=== PATIENT | female | born 1995 | race Caucasian/White ===

== ENCOUNTER → 2019-04-23 14:25 | Outpatient (CLI) | payer SELFPAY ==
[~2019-04-23 14:25] MED LIST: PRENAVITE1 TAB PO
[2019-04-23 15:12] LABS: BASOPHILS 0.3 % (0-2); EOSINOPHILS 3.1 % (0-7); HEMOGLOBIN 12.6 g/dL (12-16); IMMATURE GRANULOCYTES 0.6 % (0-5); LYMPHOCYTES 12.9 % (15-50); MCH 27.9 pg (26.0-34.0); MCHC 34.1 g/dL (31.0-37.0); MCV 81.9 fL (80.0-100.0); MEAN PLATELET VOLUME 10.5 fL (7.4-10.4); MONOCYTES 6.5 % (2-11); NEUTROPHILS 76.6 % (40-80); PLATELET COUNT 311 10x3/uL (130-400); RBC 4.52 10x6/uL (4.00-5.40); RDW 13.6 % (11.5-14.5); WBC 12.4 10x3/uL (4.8-10.8)
[2019-04-23 15:26] LABS: ALBUMIN 2.8 g/dL (3.4-5.0); ALKALINE PHOSPHATASE 93 U/L (46-116); ALT (SGPT) 40 U/L (10-68); BILIRUBIN - DIRECT 0.05 mg/dL (0.00-0.30); BILIRUBIN - INDIRECT 0.22 mg/dL (0.00-1.00); BILIRUBIN - TOTAL 0.27 mg/dL (0.2-1.3); CALC OSMOLALITY 266 mosm/kg (275-300); CALCIUM 9.3 mg/dL (8.5-10.1); CARBON DIOXIDE 23.3 mmol/L (21.0-32.0); CHLORIDE - SERUM 103 mmol/L (98-107); CREATININE - SERUM 0.7 mg/dL (0.6-1.3); GLUCOSE 76 mg/dL (74-106); POTASSIUM - SERUM 3.8 mmol/L (3.5-5.1); PROTEIN - SERUM 7.4 g/dL (6.4-8.2); SODIUM 135 mmol/L (136-145); UREA NITROGEN 6 mg/dL (7-18); URIC ACID 4.5 mg/dL (2.6-7.2); eGFR NON AFRICAN AMERICAN > 90 mL/min (90-120)
== END | disposition home or self-care (01) ==
LOC: D.LDO 14:25
PROVIDERS: ATTEND Obstetrics & Gynecology
DX: O16.9 Unspecified maternal hypertension, unspecified trimester (principal); Z3A.00 Weeks of gestation of pregnancy not specified

== ENCOUNTER → 2019-04-29 10:21 | Outpatient (CLI) | payer SELFPAY ==
[2019-04-29 10:47] LABS: BASOPHILS 0.4 % (0-2); HEMATOCRIT 33.8 % (36.0-48.0); HEMOGLOBIN 11.5 g/dL (12-16); IMMATURE GRANULOCYTES 0.5 % (0-5); LYMPHOCYTES 17.1 % (15-50); MCV 82.4 fL (80.0-100.0); MEAN PLATELET VOLUME 10.2 fL (7.4-10.4); MONOCYTES 6.3 % (2-11); NEUTROPHILS 71.7 % (40-80); PLATELET COUNT 281 10x3/uL (130-400); RDW 13.6 % (11.5-14.5); WBC 10.2 10x3/uL (4.8-10.8)
[2019-04-29 10:56] LABS: ALBUMIN 2.4 g/dL (3.4-5.0); ALKALINE PHOSPHATASE 82 U/L (46-116); ALT (SGPT) 25 U/L (10-68); BILIRUBIN - TOTAL 0.21 mg/dL (0.2-1.3); CALC OSMOLALITY 267 mosm/kg (275-300); CALCIUM 8.7 mg/dL (8.5-10.1); CARBON DIOXIDE 23.8 mmol/L (21.0-32.0); CHLORIDE - SERUM 104 mmol/L (98-107); CREATININE - SERUM 0.6 mg/dL (0.6-1.3); GLUCOSE 90 mg/dL (74-106); POTASSIUM - SERUM 3.5 mmol/L (3.5-5.1); PROTEIN - SERUM 6.8 g/dL (6.4-8.2); SODIUM 135 mmol/L (136-145); UREA NITROGEN 6 mg/dL (7-18); eGFR NON AFRICAN AMERICAN > 90 mL/min (90-120)
[2019-04-29 10:58] LABS: BILIRUBIN - DIRECT 0.03 mg/dL (0.00-0.30); BILIRUBIN - INDIRECT 0.18 mg/dL (0.00-1.00); URIC ACID 4.7 mg/dL (2.6-7.2)
== END | disposition home or self-care (01) ==
LOC: D.LDO 10:21
PROVIDERS: ATTEND Obstetrics & Gynecology
DX: O10.912 Unspecified pre-existing hypertension complicating pregnancy, second trimester (principal); Z3A.24 24 weeks gestation of pregnancy

== ENCOUNTER → 2019-05-16 15:23 | Outpatient (CLI) | payer MEDICAID ==
[2019-05-16 16:33] LABS: APPEARANCE CLEAR (CLEAR); BILIRUBIN NEGATIVE (NEGATIVE); COLOR YELLOW (YELLOW); GLUCOSE NEGATIVE (NEGATIVE); KETONE NEGATIVE (NEGATIVE); NITRITE NEGATIVE (NEGATIVE); PROTEIN NEGATIVE (NEGATIVE); SPECIFIC GRAVITY 1.015 (1.005-1.020); UROBILINOGEN NORMAL (NORMAL)
== END | disposition home or self-care (01) ==
LOC: D.LDO 15:23
PROVIDERS: ATTEND Obstetrics & Gynecology
DX: O36.8120 Decreased fetal movements, second trimester, not applicable or unspecified (principal); Z3A.27 27 weeks gestation of pregnancy; R51 Headache; M54.9 Dorsalgia, unspecified; O26.892 Other specified pregnancy related conditions, second trimester

== ENCOUNTER → 2019-05-18 09:59 | Outpatient (CLI) | payer MEDICAID ==
[2019-05-18 10:55] LABS: BASOPHILS 0.5 % (0-2); EOSINOPHILS 3.4 % (0-7); HEMATOCRIT 34.8 % (36.0-48.0); HEMOGLOBIN 11.6 g/dL (12-16); IMMATURE GRANULOCYTES 0.5 % (0-5); LYMPHOCYTES 16.2 % (15-50); MCH 27.4 pg (26.0-34.0); MCHC 33.3 g/dL (31.0-37.0); MCV 82.3 fL (80.0-100.0); MEAN PLATELET VOLUME 10.3 fL (7.4-10.4); NEUTROPHILS 73.4 % (40-80); PLATELET COUNT 299 10x3/uL (130-400); RBC 4.23 10x6/uL (4.00-5.40); RDW 13.7 % (11.5-14.5); WBC 10.9 10x3/uL (4.8-10.8)
[2019-05-18 11:09] LABS: ALBUMIN 2.5 g/dL (3.4-5.0); ALKALINE PHOSPHATASE 95 U/L (46-116); ALT (SGPT) 47 U/L (10-68); BILIRUBIN - DIRECT 0.06 mg/dL (0.00-0.30); BILIRUBIN - TOTAL 0.16 mg/dL (0.2-1.3); CALC OSMOLALITY 271 mosm/kg (275-300); CARBON DIOXIDE 23.8 mmol/L (21.0-32.0); CHLORIDE - SERUM 105 mmol/L (98-107); CREATININE - SERUM 0.6 mg/dL (0.6-1.3); GLUCOSE 92 mg/dL (74-106); POTASSIUM - SERUM 4.1 mmol/L (3.5-5.1); PROTEIN - SERUM 6.9 g/dL (6.4-8.2); SODIUM 137 mmol/L (136-145); UREA NITROGEN 6 mg/dL (7-18); URIC ACID 4.7 mg/dL (2.6-7.2); eGFR NON AFRICAN AMERICAN > 90 mL/min (90-120)
[2019-05-22 15:19] LABS: PROTEIN - URINE 14.9 mg/dL (0.0-11.9)
== END | disposition home or self-care (01) ==
LOC: D.LDO 09:59
PROVIDERS: ATTEND Obstetrics & Gynecology
DX: O16.9 Unspecified maternal hypertension, unspecified trimester (principal)

== ENCOUNTER → 2019-06-10 12:25 | Outpatient (CLI) | payer MEDICAID ==
[~2019-06-10 12:25] MED LIST changes: +NORMODYNE / TR200 MG PO; +TYLENOL W/CODEI1 TAB PO
[2019-06-10 12:54] LABS: BASOPHILS 0.3 % (0-2); EOSINOPHILS 4.7 % (0-7); IMMATURE GRANULOCYTES 0.5 % (0-5); LYMPHOCYTES 10.6 % (15-50); MCH 27.6 pg (26.0-34.0); MCHC 34.3 g/dL (31.0-37.0); MCV 80.6 fL (80.0-100.0); MEAN PLATELET VOLUME 10.4 fL (7.4-10.4); MONOCYTES 5.5 % (2-11); NEUTROPHILS 78.4 % (40-80); PLATELET COUNT 289 10x3/uL (130-400); RBC 4.34 10x6/uL (4.00-5.40); RDW 13.5 % (11.5-14.5); WBC 13.1 10x3/uL (4.8-10.8)
[2019-06-10 13:11] LABS: ALBUMIN 2.6 g/dL (3.4-5.0); ALKALINE PHOSPHATASE 110 U/L (46-116); ALT (SGPT) 32 U/L (10-68); BILIRUBIN - DIRECT 0.06 mg/dL (0.00-0.30); BILIRUBIN - INDIRECT 0.18 mg/dL (0.00-1.00); BILIRUBIN - TOTAL 0.24 mg/dL (0.2-1.3); CALC OSMOLALITY 271 mosm/kg (275-300); CALCIUM 8.8 mg/dL (8.5-10.1); CARBON DIOXIDE 20.2 mmol/L (21.0-32.0); CHLORIDE - SERUM 105 mmol/L (98-107); CREATININE - SERUM 0.6 mg/dL (0.6-1.3); GLUCOSE 97 mg/dL (74-106); POTASSIUM - SERUM 4.1 mmol/L (3.5-5.1); PROTEIN - SERUM 6.8 g/dL (6.4-8.2); SODIUM 137 mmol/L (136-145); UREA NITROGEN 6 mg/dL (7-18); URIC ACID 4.1 mg/dL (2.6-7.2); eGFR NON AFRICAN AMERICAN > 90 mL/min (90-120)
== END | disposition home or self-care (01) ==
LOC: D.LDO 12:25
PROVIDERS: ATTEND Obstetrics & Gynecology
DX: O26.893 Other specified pregnancy related conditions, third trimester (principal); Z3A.30 30 weeks gestation of pregnancy

== ENCOUNTER → 2019-06-12 10:17 | Outpatient (CLI) | payer MEDICAID | END | disposition home or self-care (01) | LOC: D.LABREF 10:17 → D.LDO 10:17 | PROVIDERS: ATTEND Obstetrics & Gynecology | DX: O36.8130 Decreased fetal movements, third trimester, not applicable or unspecified (principal); Z3A.31 31 weeks gestation of pregnancy ==

== ENCOUNTER → 2019-06-16 19:38 | Outpatient (CLI) | payer MEDICAID ==
[2019-06-16 20:31] LABS: BASOPHILS 0.3 % (0-2); HEMATOCRIT 34.1 % (36.0-48.0); HEMOGLOBIN 11.6 g/dL (12-16); IMMATURE GRANULOCYTES 0.8 % (0-5); LYMPHOCYTES 14.6 % (15-50); MCH 27.6 pg (26.0-34.0); MEAN PLATELET VOLUME 10.2 fL (7.4-10.4); MONOCYTES 5.1 % (2-11); NEUTROPHILS 76.2 % (40-80); PLATELET COUNT 301 10x3/uL (130-400); RBC 4.21 10x6/uL (4.00-5.40); RDW 13.6 % (11.5-14.5)
[2019-06-16 20:44] LABS: ALBUMIN 2.5 g/dL (3.4-5.0); ALKALINE PHOSPHATASE 104 U/L (46-116); ALT (SGPT) 32 U/L (10-68); BILIRUBIN - INDIRECT 0.17 mg/dL (0.00-1.00); BILIRUBIN - TOTAL 0.21 mg/dL (0.2-1.3); CALC OSMOLALITY 273 mosm/kg (275-300); CALCIUM 9.3 mg/dL (8.5-10.1); CARBON DIOXIDE 23.8 mmol/L (21.0-32.0); CHLORIDE - SERUM 104 mmol/L (98-107); CREATININE - SERUM 0.6 mg/dL (0.6-1.3); GLUCOSE 93 mg/dL (74-106); POTASSIUM - SERUM 3.6 mmol/L (3.5-5.1); PROTEIN - SERUM 6.5 g/dL (6.4-8.2); SODIUM 138 mmol/L (136-145); UREA NITROGEN 8 mg/dL (7-18); URIC ACID 5.2 mg/dL (2.6-7.2); eGFR NON AFRICAN AMERICAN > 90 mL/min (90-120)
[2019-06-16 20:45] LABS: BILIRUBIN - DIRECT 0.04 mg/dL (0.00-0.30)
== END | disposition home or self-care (01) ==
LOC: D.LDO 19:38
PROVIDERS: ATTEND Obstetrics & Gynecology
DX: O26.893 Other specified pregnancy related conditions, third trimester (principal); Z3A.31 31 weeks gestation of pregnancy

== ENCOUNTER → 2019-06-19 20:27 | Outpatient (CLI) | payer MEDICAID | END | disposition home or self-care (01) | LOC: D.LDO 20:27 | PROVIDERS: ATTEND Obstetrics & Gynecology | DX: O26.893 Other specified pregnancy related conditions, third trimester (principal); Z3A.32 32 weeks gestation of pregnancy ==

== ENCOUNTER 2019-06-23 09:56 | Outpatient (CLI) | payer MEDICAID | END 2019-06-23 10:05 | LOC: D.LDO 09:56 | PROVIDERS: ATTEND Obstetrics & Gynecology | DX: O10.913 Unspecified pre-existing hypertension complicating pregnancy, third trimester (principal); Z3A.32 32 weeks gestation of pregnancy ==

== ENCOUNTER → 2019-06-26 10:16 | Outpatient (CLI) | payer MEDICAID | END | disposition home or self-care (01) | LOC: D.LDO 10:16 | PROVIDERS: ATTEND Student in an Organized Health Care Education/Training Program | DX: O26.893 Other specified pregnancy related conditions, third trimester (principal); Z3A.33 33 weeks gestation of pregnancy; R03.0 Elevated blood-pressure reading, without diagnosis of hypertension ==

== ENCOUNTER → 2019-06-30 08:43 | Outpatient (CLI) | payer MEDICAID ==
[2019-06-30 09:27] LABS: BASOPHILS 0.3 % (0-2); EOSINOPHILS 3.9 % (0-7); HEMATOCRIT 34.9 % (36.0-48.0); HEMOGLOBIN 11.7 g/dL (12-16); IMMATURE GRANULOCYTES 0.4 % (0-5); LYMPHOCYTES 14.3 % (15-50); MCHC 33.5 g/dL (31.0-37.0); MCV 80.4 fL (80.0-100.0); MEAN PLATELET VOLUME 9.9 fL (7.4-10.4); MONOCYTES 6.7 % (2-11); NEUTROPHILS 74.4 % (40-80); PLATELET COUNT 294 10x3/uL (130-400); RBC 4.34 10x6/uL (4.00-5.40); RDW 13.6 % (11.5-14.5); WBC 10.8 10x3/uL (4.8-10.8)
[2019-06-30 09:50] LABS: ALBUMIN 2.3 g/dL (3.4-5.0); ALKALINE PHOSPHATASE 113 U/L (46-116); ALT (SGPT) 34 U/L (10-68); BILIRUBIN - DIRECT 0.07 mg/dL (0.00-0.30); BILIRUBIN - INDIRECT 0.07 mg/dL (0.00-1.00); BILIRUBIN - TOTAL 0.14 mg/dL (0.2-1.3); CALC OSMOLALITY 270 mosm/kg (275-300); CALCIUM 9.7 mg/dL (8.5-10.1); CARBON DIOXIDE 22.3 mmol/L (21.0-32.0); CHLORIDE - SERUM 103 mmol/L (98-107); CREATININE - SERUM 0.7 mg/dL (0.6-1.3); GLUCOSE 89 mg/dL (74-106); POTASSIUM - SERUM 3.9 mmol/L (3.5-5.1); PROTEIN - SERUM 6.2 g/dL (6.4-8.2); SODIUM 137 mmol/L (136-145); UREA NITROGEN 6 mg/dL (7-18); URIC ACID 4.9 mg/dL (2.6-7.2); eGFR NON AFRICAN AMERICAN > 90 mL/min (90-120)
== END | disposition home or self-care (01) ==
LOC: D.LDO 08:43
PROVIDERS: ATTEND Obstetrics & Gynecology
DX: O26.899 Other specified pregnancy related conditions, unspecified trimester (principal); Z3A.33 33 weeks gestation of pregnancy

== ENCOUNTER → 2019-07-03 18:19 | Outpatient (CLI) | payer MEDICAID | END | disposition home or self-care (01) | LOC: D.LDO 18:19 | PROVIDERS: ATTEND Obstetrics & Gynecology | DX: O16.9 Unspecified maternal hypertension, unspecified trimester (principal) ==

== ENCOUNTER 2019-07-07 14:13 | Outpatient (CLI) | payer MEDICAID ==
[2019-07-07 15:05] LABS: BASOPHILS 0.2 % (0-2); EOSINOPHILS 2.6 % (0-7); HEMATOCRIT 32.7 % (36.0-48.0); IMMATURE GRANULOCYTES 0.5 % (0-5); LYMPHOCYTES 15.9 % (15-50); MCH 26.8 pg (26.0-34.0); MCHC 33.6 g/dL (31.0-37.0); MCV 79.8 fL (80.0-100.0); MEAN PLATELET VOLUME 10.2 fL (7.4-10.4); MONOCYTES 7.1 % (2-11); NEUTROPHILS 73.7 % (40-80); PLATELET COUNT 294 10x3/uL (130-400); RDW 13.7 % (11.5-14.5); WBC 9.6 10x3/uL (4.8-10.8)
[2019-07-07 15:17] LABS: ALBUMIN 2.3 g/dL (3.4-5.0); ALKALINE PHOSPHATASE 111 U/L (46-116); ALT (SGPT) 94 U/L (10-68); BILIRUBIN - DIRECT 0.07 mg/dL (0.00-0.30); BILIRUBIN - INDIRECT 0.13 mg/dL (0.00-1.00); CALC OSMOLALITY 274 mosm/kg (275-300); CALCIUM 8.7 mg/dL (8.5-10.1); CARBON DIOXIDE 24.9 mmol/L (21.0-32.0); CHLORIDE - SERUM 104 mmol/L (98-107); CREATININE - SERUM 0.6 mg/dL (0.6-1.3); GLUCOSE 119 mg/dL (74-106); POTASSIUM - SERUM 3.6 mmol/L (3.5-5.1); PROTEIN - SERUM 6.7 g/dL (6.4-8.2); SODIUM 138 mmol/L (136-145); UREA NITROGEN 7 mg/dL (7-18); URIC ACID 5.8 mg/dL (2.6-7.2); eGFR NON AFRICAN AMERICAN > 90 mL/min (90-120)
[2019-07-07 19:46] LABS: BASOPHILS 0.3 % (0-2); EOSINOPHILS 3.3 % (0-7); HEMATOCRIT 34.4 % (36.0-48.0); HEMOGLOBIN 11.6 g/dL (12-16); IMMATURE GRANULOCYTES 0.6 % (0-5); LYMPHOCYTES 18.2 % (15-50); MCH 27.1 pg (26.0-34.0); MCHC 33.7 g/dL (31.0-37.0); MCV 80.4 fL (80.0-100.0); MEAN PLATELET VOLUME 10.2 fL (7.4-10.4); MONOCYTES 9.2 % (2-11); NEUTROPHILS 68.4 % (40-80); PLATELET COUNT 291 10x3/uL (130-400); RBC 4.28 10x6/uL (4.00-5.40); RDW 13.7 % (11.5-14.5); WBC 9.9 10x3/uL (4.8-10.8)
[2019-07-07 20:08] LABS: CALC OSMOLALITY 280 mosm/kg (275-300); CALCIUM 8.4 mg/dL (8.5-10.1); CARBON DIOXIDE 22.9 mmol/L (21.0-32.0); CHLORIDE - SERUM 107 mmol/L (98-107); CREATININE - SERUM 0.6 mg/dL (0.6-1.3); GLUCOSE 127 mg/dL (74-106); POTASSIUM - SERUM 3.6 mmol/L (3.5-5.1); SODIUM 141 mmol/L (136-145); UREA NITROGEN 6 mg/dL (7-18); URIC ACID 5.3 mg/dL (2.6-7.2); eGFR NON AFRICAN AMERICAN > 90 mL/min (90-120)
[2019-07-07 21:28] LABS: ALBUMIN 2.4 g/dL (3.4-5.0); BILIRUBIN - DIRECT 0.07 mg/dL (0.00-0.30); BILIRUBIN - INDIRECT 0.06 mg/dL (0.00-1.00); BILIRUBIN - TOTAL 0.13 mg/dL (0.2-1.3); PROTEIN - SERUM 6.5 g/dL (6.4-8.2)
[2019-07-08 02:28] VITALS: BP 98/45
[2019-07-08 04:42] VITALS: BP 92/42
[2019-07-08 07:06] LABS: MCH 26.9 pg (26.0-34.0); MCHC 33.3 g/dL (31.0-37.0); MCV 80.7 fL (80.0-100.0); MEAN PLATELET VOLUME 10.5 fL (7.4-10.4); RBC 4.09 10x6/uL (4.00-5.40); WBC 9.7 10x3/uL (4.8-10.8)
[2019-07-08 07:43] LABS: ALBUMIN 2.1 g/dL (3.4-5.0); ALKALINE PHOSPHATASE 112 U/L (46-116); ALT (SGPT) 86 U/L (10-68); BILIRUBIN - DIRECT 0.02 mg/dL (0.00-0.30); BILIRUBIN - INDIRECT 0.18 mg/dL (0.00-1.00); CALC OSMOLALITY 277 mosm/kg (275-300); CALCIUM 8.2 mg/dL (8.5-10.1); CARBON DIOXIDE 22.5 mmol/L (21.0-32.0); CHLORIDE - SERUM 108 mmol/L (98-107); CREATININE - SERUM 0.6 mg/dL (0.6-1.3); GLUCOSE 94 mg/dL (74-106); PROTEIN - SERUM 6.4 g/dL (6.4-8.2); SODIUM 140 mmol/L (136-145); UREA NITROGEN 9 mg/dL (7-18); eGFR NON AFRICAN AMERICAN > 90 mL/min (90-120)
== END 2019-07-08 08:30 | disposition home or self-care (01) ==
LOC: D.LDO 14:13 → D.LD 22:10 → D.LDO 07-08 08:30
PROVIDERS: ATTEND Obstetrics & Gynecology
DX: O26.899 Other specified pregnancy related conditions, unspecified trimester (principal); Z3A.00 Weeks of gestation of pregnancy not specified

== ENCOUNTER → 2019-07-10 17:05 | Outpatient (CLI) | payer MEDICAID ==
[2019-07-10 17:31] LABS: BASOPHILS 0.2 % (0-2); EOSINOPHILS 2.5 % (0-7); HEMATOCRIT 34.1 % (36.0-48.0); HEMOGLOBIN 11.2 g/dL (12-16); IMMATURE GRANULOCYTES 0.4 % (0-5); LYMPHOCYTES 16.4 % (15-50); MCH 27.2 pg (26.0-34.0); MCHC 32.8 g/dL (31.0-37.0); MCV 82.8 fL (80.0-100.0); MONOCYTES 6.9 % (2-11); NEUTROPHILS 73.6 % (40-80); PLATELET COUNT 310 10x3/uL (130-400); RBC 4.12 10x6/uL (4.00-5.40); RDW 13.7 % (11.5-14.5); WBC 11.4 10x3/uL (4.8-10.8)
[2019-07-10 17:46] LABS: ALBUMIN 2.4 g/dL (3.4-5.0); ALKALINE PHOSPHATASE 121 U/L (46-116); ALT (SGPT) 79 U/L (10-68); BILIRUBIN - DIRECT 0.07 mg/dL (0.00-0.30); BILIRUBIN - INDIRECT 0.13 mg/dL (0.00-1.00); CALC OSMOLALITY 279 mosm/kg (275-300); CALCIUM 8.4 mg/dL (8.5-10.1); CARBON DIOXIDE 24.7 mmol/L (21.0-32.0); CHLORIDE - SERUM 107 mmol/L (98-107); CREATININE - SERUM 0.6 mg/dL (0.6-1.3); GLUCOSE 116 mg/dL (74-106); POTASSIUM - SERUM 3.6 mmol/L (3.5-5.1); PROTEIN - SERUM 6.4 g/dL (6.4-8.2); SODIUM 141 mmol/L (136-145); UREA NITROGEN 6 mg/dL (7-18); URIC ACID 4.6 mg/dL (2.6-7.2); eGFR NON AFRICAN AMERICAN > 90 mL/min (90-120)
== END | disposition home or self-care (01) ==
LOC: D.LDO 17:05
PROVIDERS: ATTEND Obstetrics & Gynecology
DX: O13.3 Gestational [pregnancy-induced] hypertension without significant proteinuria, third trimester (principal); Z3A.35 35 weeks gestation of pregnancy

== ENCOUNTER 2019-07-14 20:01 | Outpatient (CLI) | payer MEDICAID ==
[2019-07-14 21:31] LABS: APPEARANCE CLEAR (CLEAR); BILIRUBIN NEGATIVE (NEGATIVE); COLOR YELLOW (YELLOW); GLUCOSE NEGATIVE (NEGATIVE); KETONE NEGATIVE (NEGATIVE); NITRITE NEGATIVE (NEGATIVE); PROTEIN NEGATIVE (NEGATIVE); UROBILINOGEN NORMAL (NORMAL)
[2019-07-14 21:35] LABS: BASOPHILS 0.2 % (0-2); HEMATOCRIT 35.9 % (36.0-48.0); HEMOGLOBIN 11.8 g/dL (12-16); IMMATURE GRANULOCYTES 0.5 % (0-5); LYMPHOCYTES 14.6 % (15-50); MCHC 32.9 g/dL (31.0-37.0); MCV 82.2 fL (80.0-100.0); MEAN PLATELET VOLUME 10.5 fL (7.4-10.4); MONOCYTES 6.9 % (2-11); NEUTROPHILS 75.8 % (40-80); PLATELET COUNT 338 10x3/uL (130-400); RBC 4.37 10x6/uL (4.00-5.40); RDW 13.7 % (11.5-14.5); WBC 12.8 10x3/uL (4.8-10.8)
[2019-07-14 21:45] LABS: ALBUMIN 2.4 g/dL (3.4-5.0); ALKALINE PHOSPHATASE 125 U/L (46-116); ALT (SGPT) 89 U/L (10-68); BILIRUBIN - DIRECT 0.07 mg/dL (0.00-0.30); BILIRUBIN - TOTAL 0.27 mg/dL (0.2-1.3); CALC OSMOLALITY 271 mosm/kg (275-300); CALCIUM 8.7 mg/dL (8.5-10.1); CARBON DIOXIDE 24.5 mmol/L (21.0-32.0); CHLORIDE - SERUM 104 mmol/L (98-107); CREATININE - SERUM 0.8 mg/dL (0.6-1.3); GLUCOSE 95 mg/dL (74-106); POTASSIUM - SERUM 3.4 mmol/L (3.5-5.1); PROTEIN - SERUM 7.1 g/dL (6.4-8.2); SODIUM 137 mmol/L (136-145); UREA NITROGEN 8 mg/dL (7-18); URIC ACID 4.6 mg/dL (2.6-7.2); eGFR NON AFRICAN AMERICAN > 90 mL/min (90-120)
[2019-07-24 05:54] VITALS: BMI 51.4
== END 2019-07-14 22:18 ==
LOC: D.LDO 20:01
PROVIDERS: Student in an Organized Health Care Education/Training Program; ATTEND Obstetrics & Gynecology
DX: O13.3 Gestational [pregnancy-induced] hypertension without significant proteinuria, third trimester (principal); Z3A.35 35 weeks gestation of pregnancy

== ENCOUNTER → 2019-07-17 13:27 | Outpatient (CLI) | payer MEDICAID ==
[~2019-07-17 13:27] MED LIST changes: +CELEXA20 MG PO; +HYDROCODON-ACE1 EAC7 PO; +IBUPROFEN800 MG PO
[2019-07-24 05:54] VITALS: BMI 51.4
== END | disposition home or self-care (01) ==
LOC: D.LDO 13:27
PROVIDERS: ATTEND Obstetrics & Gynecology
DX: O26.90 Pregnancy related conditions, unspecified, unspecified trimester (principal)

== ENCOUNTER → 2019-07-21 16:40 | Outpatient (CLI) | payer MEDICAID ==
[2019-07-21 17:22] LABS: BASOPHILS 0.2 % (0-2); EOSINOPHILS 2.4 % (0-7); HEMATOCRIT 36.3 % (36.0-48.0); IMMATURE GRANULOCYTES 0.5 % (0-5); LYMPHOCYTES 14.2 % (15-50); MCH 27.3 pg (26.0-34.0); MCHC 33.1 g/dL (31.0-37.0); MCV 82.5 fL (80.0-100.0); MEAN PLATELET VOLUME 10.8 fL (7.4-10.4); MONOCYTES 7.1 % (2-11); NEUTROPHILS 75.6 % (40-80); PLATELET COUNT 320 10x3/uL (130-400); RDW 13.8 % (11.5-14.5); WBC 13.2 10x3/uL (4.8-10.8)
[2019-07-21 17:39] LABS: ALBUMIN 2.5 g/dL (3.4-5.0); ALKALINE PHOSPHATASE 137 U/L (46-116); ALT (SGPT) 65 U/L (10-68); BILIRUBIN - INDIRECT 0.06 mg/dL (0.00-1.00); BILIRUBIN - TOTAL 0.16 mg/dL (0.2-1.3); CALC OSMOLALITY 275 mosm/kg (275-300); CALCIUM 8.7 mg/dL (8.5-10.1); CARBON DIOXIDE 21.3 mmol/L (21.0-32.0); CHLORIDE - SERUM 106 mmol/L (98-107); CREATININE - SERUM 0.6 mg/dL (0.6-1.3); GLUCOSE 82 mg/dL (74-106); PROTEIN - SERUM 6.8 g/dL (6.4-8.2); SODIUM 140 mmol/L (136-145); UREA NITROGEN 7 mg/dL (7-18); URIC ACID 4.6 mg/dL (2.6-7.2); eGFR NON AFRICAN AMERICAN > 90 mL/min (90-120)
[2019-07-24 05:54] VITALS: BMI 51.4
== END | disposition home or self-care (01) ==
LOC: D.LDO 16:40 → D.LABREF 16:40
PROVIDERS: ATTEND Obstetrics & Gynecology
DX: O13.3 Gestational [pregnancy-induced] hypertension without significant proteinuria, third trimester (principal); Z3A.36 36 weeks gestation of pregnancy

== ENCOUNTER 2019-07-24 05:36 | Inpatient (IN) | payer MEDICAID ==
[~2019-07-24] VITALS: Ht 167.6 cm; Wt 144.5 kg
[2019-07-24] VITALS (14 sets, daily range): BP systolic 100–131; BP diastolic 53–80; Ht 167.6 cm; Wt 144.5 kg
[~2019-07-24 05:36] MED LIST changes: -CELEXA20 MG PO; -HYDROCODON-ACE1 EAC7 PO; -IBUPROFEN800 MG PO
[2019-07-24 07:05] LABS: APPEARANCE CLEAR (CLEAR); COLOR YELLOW (YELLOW); NITRITE NEGATIVE (NEGATIVE)
[2019-07-24 07:06] LABS: BILIRUBIN NEGATIVE (NEGATIVE); GLUCOSE NEGATIVE (NEGATIVE); KETONE NEGATIVE (NEGATIVE); PROTEIN NEGATIVE (NEGATIVE); UROBILINOGEN NORMAL (NORMAL)
[2019-07-24 07:07] LABS: HEMATOCRIT 37.7 % (36.0-48.0); HEMOGLOBIN 12.3 g/dL (12-16); MCH 26.8 pg (26.0-34.0); MCHC 32.6 g/dL (31.0-37.0); MCV 82.1 fL (80.0-100.0); MEAN PLATELET VOLUME 10.3 fL (7.4-10.4); RBC 4.59 10x6/uL (4.00-5.40); RDW 14.1 % (11.5-14.5); WBC 10.8 10x3/uL (4.8-10.8)
--- NOTE | 2019-07-24 09:55 | NUR ---
DERMATONES BILATERAL T10 LEVEL. ICE PACK PLACED, PERIPAD IN PLACE. RECIEVED PATIENT AWAKE AND ALERT.
--- NOTE | 2019-07-24 09:56 | NUR ---
PATIENT ABLE TO WIGGLE BILATERAL TOES. DERMATONES T12
--- NOTE | 2019-07-24 10:32 | NUR ---
PT RCVD FROM [facility], RN IN RECOVERY, VIA BED TO ROOM 1227. PT AAOx3, RATING PAIN APPROX 3/10 AT INCISION. RIGHT WRIST PIV INFUSING PITOCIN ORDERED. WHITE OCCLUSIVE DRESSING OVER LOW TRANSVERSE ABD INCISION IS C/D/I. FF, ML, U/1. SMALL TO MOD AMOUNT RUBRA LOCHIA NOTED TO PERIPAD, NO CLOTS EXPELLED WITH MASSAGE. PERIPAD CHANGED. VITALE CATH DRAINING CLEAR YELLOW URINE TO BEDSIDE DRAINAGE, TUBING NOTED TO BE SECURED VIA STAT LOCK TO PT'S INNER RIGHT THIGH. PT C/O CRAMPING FOLLOWING FUNDAL MASSAGE, RATES CRAMPING PAIN 7/10, REQUESTING PAIN MED. WILL ADMIN ORDERED. SRUx2, CL IN REACH. SIG OTHER AT BEDSIDE. NURSERY RN TO ROOM AT THIS TIME WITH TO BREASTFEED.
--- NOTE | 2019-07-24 10:36 | NUR ---
FUNUS MIDLINE, 1 FINGERBREATH BELOW UMBILICUS, FIRM AND HARD. PERIPAD WITH DARK RED DRAINIAGE MINIMAL CLOTS. PERIPAD REPLACED.
--- NOTE | 2019-07-24 10:52 | NUR ---
PT ADMIN TORADOL ORDERED PRN FOR PAIN. PT INFANT AT THIS TIME. WILL OBTAIN WOODWINDS TEACHER PUMP AND SET UP ORDERED. SIG OTHER AT BEDSIDE. SRUx2, CL IN REACH.
--- NOTE | 2019-07-24 11:03 | NUR ---
VULCANIZER OPERATOR SET UP ORDERED, SEE EMAR FOR DOC. PT RATING PAIN APPROX 6/10 AT THIS TIME DUE TO CRAMPING WITH . PT ADMIN 0.4MG BOLUS DOSE DILAUDID PER VULCANIZER OPERATOR PUMP ORDERED PRN. PT INSTRUCTED ON VULCANIZER OPERATOR USE, UNDERSTANDING VERBALIZED. FF, ML, U/1. MODERATE RUBRA LOCHIA NOTED TO PERIPAD, PAD CHANGED. SCD'S CONNECTED TO PUMP AND TURNED ON TO LE BILAT. PT INSTRUCTED ON SCD PURPOSE, UNDERSTANDING VERBALIZED. 200ML CLEAR YELLOW URINE EMPTIED FROM UROMETER. PT DENIES FURTHER NEEDS AT THIS TIME. SIG OTHER AT BEDSIDE. SRUx2, CL IN REACH.
--- NOTE | 2019-07-24 11:30 | NUR ---
THIS RN TO ROOM FOR PT CHECK. FF, ML, U/1. SMALL RUBRA LOCHIA NOTED TO PERIPAD. PT REQUESTS TO MOVE UP IN BED, DOES SO PER SELF. PT ABLE TO LIFT BUTTOCKS OFF BED, BED PADS CHANGED. PT PROVIDED WITH ICE WATER AND INSTRUCTED TO SIP SLOWLY AND REPORT ANY NAUSEA, EMESIS BAG GIVEN. SURGICAL SUPPORT PILLOW PROVIDED FOR ABD. PT DENIES FURTHER NEEDS AT THIS TIME, SMILING AND VISITING WITH FAMILY MEMBERS. SRUx2, CL IN REACH.
--- NOTE | 2019-07-24 12:30 | NUR ---
THIS RN TO ROOM FOR PT CHECK. PT SITTING UP IN BED, VISITING WITH FAMILY. PT RATES PAIN APPROX 3/10, DENIES NEEDS. SRUx2, CL IN REACH. WILL CONT TO MONITOR.
--- NOTE | 2019-07-24 13:30 | NUR ---
THIS RN TO ROOM FOR PT CHECK. 205ML CLEAR YELLOW URINE EMPTIED FROM UROMETER. FF, ML, U/1. SMALL RUBRA LOCHIA NOTED TO PERIPAD, PAD CHANGED. PT DENIES NEEDS. SRUx2, CL IN REACH.
--- NOTE | 2019-07-24 14:30 | NUR ---
THIS RN TO ROOM FOR PT CHECK. PT SITTING UP IN BED VISITING WITH FAMILY. PT TEACHING REINFORCED ON USE OF INCENTIVE SPIROMETER, PT STATES SHE HAS NOT USED IT YET. PT ENCOURAGED, DOES DEEP BREATHING x3 WITH GREAT EFFORT, GOOD COUGH. SMALL TO MOD RUBRA LOCHIA NOTED TO PERIPAD, PAD CHANGED. 60ML CLEAR YELLOW URINE EMPTIED FROM UROMETER. PT REPORTS GOOD PAIN CONTROL WITH CHANNEL DEVELOPMENT MANAGER USE. PT PROVIDED WITH APPLE JUICE PER REQUEST, DENIES FURTHER NEEDS. SRUx2, CL IN REACH. WILL CONT TO MONITOR.
[2019-07-24 14:34] LABS: BASOPHILS 0.2 % (0-2); EOSINOPHILS 0.8 % (0-7); HEMATOCRIT 32.6 % (36.0-48.0); HEMOGLOBIN 10.7 g/dL (12-16); IMMATURE GRANULOCYTES 0.4 % (0-5); MCH 26.8 pg (26.0-34.0); MCHC 32.8 g/dL (31.0-37.0); MCV 81.7 fL (80.0-100.0); MEAN PLATELET VOLUME 10.4 fL (7.4-10.4); MONOCYTES 6.6 % (2-11); PLATELET COUNT 285 10x3/uL (130-400); RBC 3.99 10x6/uL (4.00-5.40)
[2019-07-24 14:35] LABS: WBC 17.8 10x3/uL (4.8-10.8)
--- NOTE | 2019-07-24 17:30 | NUR ---
100ML CLEAR YELLOW URINE EMPTIED FROM UROMETER. PT C/O CRUZ, WILL ADMIN TORADOL ORDERED. PT TO BE TRANSFERRED VIA BED TO ROOM 1273.
--- NOTE | 2019-07-24 17:40 | NUR ---
PT TRANSFERRED TO ROOM 1273 FOR STAY. FF, ML, U/1. LARGE LOCHIA RUBRA NOTED TO BED PAD, APPROX 3 QUARTER SIZED CLOTS EXPELLED WITH MASSAGE. PERICARE DONE AND BED PADS CHANGED WITH ASSIST FROM CORIE. CORIE, RN GIVEN REPORT ON PT TO ASSUME CARE. SRUx2, CL IN REACH. SIG OTHER AT BEDSIDE AND PT VISITING WITH FAMILY.
--- NOTE | 2019-07-24 18:10 | NUR ---
TORADOL 30 MG DILUTED WITH 10 ML'S NS AND GIVEN SIVP. FRESH ICE PACK PLACED OVER GOWN TO INCISION. PT DENIES ALL NEEDS AT THIS TIME. I/S AT BEDSIDE, PT VOICES UNDERSTANDING. HUMAN RESOURCES BENEFITS ASSISTANT BUTTON WITHIN REACH. FAMILY AT BEDSIDE. SRUP X2, CALL LIGHT AND PHONE WITHIN REACH.
--- NOTE | 2019-07-24 19:00 | NUR ---
REPORT GIVEN TO 7 P SHIFT.
--- NOTE | 2019-07-24 19:28 | NUR ---
SHIFT ASSESSMENT COMPLETED PER FLOWSHEET. VSS. FUNDUS FIRM MIDLINE AND U1 WITH SMALL AMT RUBRA LOCHIA, NO CLOTS NOTED. PERICARE DONE, PADS AND TOWELS CHANGED. I&O DONE WITH 500 MLS EMPTIED FROM VITALE. PT REQUESTING TO GET OBB BED AND AMBULATE. C/O ABD CRAMPING AND SORENESS 5/10 FOLLOWING FUNDAL CHECK, REPORTS THAT DUCT LAYER HELPER IS CONTROLLING PAIN WELL. ALSO C/O CONSTANT CRUZ, CURRENTLY 3/10, ACHING AND THROBBING IN BILATERAL TEMPALS THAT RADIATES TO BEHIND EYES, REPORTS THAT CRUZ WAS INITIALLY 8/10 BUT IMPROVED WITH LAYING BACK IN BED AND TURNING LIGHTS OUT. WILL REPORT PT REQUEST TO NORMALIZE AND C/O CRUZ AND ASSESSMENT TO DR. GRULLON. DENIES NV, VISION CHANGES, 2+ BLE EDEMA NOTED. SCD'S ON BLE. PT EDUCATED ON S/S TO REPORT TO RN, VERBALIZES UNDERSTANDING. BED IN LOW POSITION WITH UPPER SIDE RAILS RAISED X2. CALL LIGHT AND PHONE WITHIN REACH. WILL CONTINUE TO MONITOR.
--- NOTE | 2019-07-24 20:15 | NUR ---
BINDU, PHARMACIST TO UNIT, REPORTS THAT IV CAFFEINE IS NOT AVAILABLE IN HOUSE BUT DOSE IS AVAILABLE IN PO FORM. DR. GRULLON CONTACTED AND ORDERS REC'D TO ORDER PO AND D/C IV INFUSION.
--- NOTE | 2019-07-24 21:13 | NUR ---
RESTING WITH EYES CLOSED, RESP REGULAR AND UNLABORED, AROUSES TO VOICE. UPDATED ON POC, VERBALIZES UNDERSTANDING. 300 MG PO CAFFEINE GIVEN PER ORDER. REPORTS THAT HEADACHE IS COMPLETELY GONE AT THIS TIME, HOB ELEVATED 45 DEGREES. PIV SL, NO S/S OF INFILTRATION NOTED. 9 MLS MANAGER CLINICAL SERVICES WASTED WITH Maile CORDERO RN. C/O ABD SORENESS AND CRAMPING 12/21, NORCO PROVIDED PER PT REQUEST AND ORDER. VITALE D/C'S WITH 150 MLS YELLOW URINE PRESENT IN UROMETER. EDUCATED PT TO CALL FOR ASSISTANCE OOB WHEN URGE TO VOID IS FELT, VERBALIZES UNDERSTANDING. NBN CALLED FOR UPDATE ON INFANT AND GIVEN TO PT, ROOM TEMP INCREASED PER PT REQUEST. BED IN LOW POSITION WITH UPPER SIDE RAILS RAISED X2. CALL LIGHT AND PHONE PLACED WITHIN PT REACH.
--- NOTE | 2019-07-24 22:01 | NUR ---
PAIN REASSESSENT COMPLETED, PAIN 2. REPORTS THAT HEADACHE REMAINS GONE. DENIES NEEDS. BED IN LOW POSITION WITH UPPER SIDE RIALS RAISED X2. CALL LIGHT AND PHONE WITHIN REACH. SPOUSE RESTING ON COUCH AT BEDSIDE. BED IN LOW POSITION SRUPX2. CALL LIGHT AND PHONE WITHIN REACH.
--- NOTE | 2019-07-24 22:47 | NUR ---
ASSISTED PT WITH BOTTLE FEEDING AND INSTRUCTED ON BULB SYRINGE USE, VERBALIZES UNDERSTANDING AND DENIES QUESTIONS. BED IN LOW POSITION WITH UPPER SIDE RAILS RAISED X2. CALL LIGHT AND PHONE WITHIN REACH. WILL CONTINUE TO MONITOR. SPOUSE RESTING ON COUCH AT BEDSIDE.
--- NOTE | 2019-07-24 23:52 | NUR ---
INFANT BACK TO NBN AT 2315 PER PT REQUEST. PT OOB TO BR AT 2330 WITH STAND BY ASSIST, DENIES DIZZINESS. STEADY GAIT NOTED, REINFORCED AND EDUCATED ON SPLINTING, DEMONSTRATED UNDERSTANDING. VOIDED 500 MLS YELLOW URINE IN HAT, 1 HALF DOLLAR SIZED CLOT NOTED ON PERIPAD. PERICARE DONE PER PT, PADS AND PANTIES PROVIDED. PT EDUCATED ON S/S TO REPORT TO RN, VERBALIZES UNDERSTANDING. LINENS AND GOWN CHANGED. ORAL CARE DONE PER PT. BACK TO BED. REQUESTS SCD'S BE LEFT OFF AT THIS TIME, EDUCATED ON PURPOSE OF SCD'S, REQUESTS TO LEAVE THEM OFF UNTIL SHE GETS OOB BED NEXT TIME, THEN WILL REPLACE THEM. VSS. FUNDUS REMAINS FIRM MIDLINE AND U1 WITH SMALL AMT RUBRA LOCHIA. C/O PAIN 3/10, ABD CRAMPING AND SORENESS WITH INCISIONAL BURNING AND STINGING, SCHEDULED TORADOL GIVEN. NEW ICE PACK PLACED. QUESTIONS REGARDING ABD BINDER ANSWERED, PT REQUESTS BINDER, DR. GRULLON NOTIFIED AND ORDERS REC'D. WILL PLACE ON PT WHEN AMBULATING. BED IN LOW POSITION WITH UPPER SIDE RAILS RAISED X2. CALL LIGHT AND PHONE WITHIN REACH. WILL CONTINUE TO MONITOR.
--- NOTE | 2019-07-25 00:40 | NUR ---
PAIN REASSESSMENT COMPLETED. RESTING QUIETLY LAYING ON LEFT SIDE. RESP REGULAR AND UNLABORED, NO S/S OF DISTRESS NOTED. REMAINS IN NBN. SPOUSE RESTING QUIETLY ON COUCH AT BEDSIDE. BED IN LOW POSITION WITH SRUPX2. CALL LIGHT AND PHONE WITHIN REACH. WILL CONTINUE TO MONITOR.
--- NOTE | 2019-07-25 01:55 | NUR ---
UP TO BR WITH STANDBY ASSIST, DENIES DIZZINESS, STEADY GAIT NOTED. VOIDED 600 MLS CLEAR LIGHT YELLOW URINE IN HAT, SCANT RUBRA LOCHIA TO PERIPAD, NO CLOTS NOTED. PERICARE DONE PER PT. C/O ABD CRAMPING, INCISIONAL BURNING AND STINGING 02/20, REQUEST PAIN MEDS AND GIVEN PER ORDER AND PT REQUEST. POSITIONED SELF TO RIGHT SIDE. INFANT RESTING IN OPEN CRIB AT BEDSIDE. SCD'S BACK ON BLE. ICE WATER PROVIDED. DENIES ADDITIONAL NEEDS. KT IN LOW POSITION WITH UPPER SIDE RAILS RAISED X2. CALL LIGHT AND PHONE WITHIN REACH.
--- NOTE | 2019-07-25 02:45 | NUR ---
PAIN REASSESSMENT COMPLETED, 11/23. DENIES ADDITIONAL NEEDS. SPOUSE RESTING ON COUCH AT BEDSIDE. RESTING IN OPEN CRIB AT BEDSIDE. BED IN LOW POSITION WITH UPPER SIDE RAILS RAISED X2. CALL LIGHT AND PHONE WITHIN REACH.
[2019-07-25 04:38] VITALS: BP 116/59
--- NOTE | 2019-07-25 04:38 | NUR ---
VSS. FUNDUS REMAINS FIRM, MIDLINE AND U1 WITH SMALL AMT RUBRA LOCHIA, NO CLOTS NOTED. DENIES NEEDS AT THIS TIME. ABD CRAMPING AND SORENESS 2/10, DENIES NEED FOR INTERVENTION. INFANT HANDED TO MOM FOR BOTTLE FEEDING. EXTRA PILLOWS PROVIDED PER PT REQUEST. DENIES ADDITIONAL NEEDS. BED IN LOW POSITION WITH UPPER SIDE RAILS RAISED X2. CALL LIGHT AND PHONE WITHIN REACH. WILL CONTINUE TO MONITOR.
--- NOTE | 2019-07-25 04:46 | NUR ---
CALLS VIA CALL LIGHT. REQUESTING ASSISTANCE WITH , REPORTS THAT SHE IS UNABLE TO GET TO BURP AND HIS IS SPITTING UP. ASSISTED PT WITH POSITIONING AND BURPING TECHNIQUES, DEMONSTRATES UNDERSTANDING AND DENIES NEEDS. WILL CONTINUE TO MONITOR.
--- NOTE | 2019-07-25 05:10 | NUR ---
INFANT BACK TO NBN PER PT REQUEST. DENIES NEEDS AT THIS TIME. STATES THAT SHE IS GOING TO REST. SPOUSE CONTINUES TO REST ON COUCH AT BEDSIDE. BED IN LOW POSITION WITH UPPER SIDE RIALS RAISED X2. CALL LIGHT AND PHONE WITHIN REACH.
--- NOTE | 2019-07-25 06:15 | NUR ---
C/O ABD AND INCISIONAL PAIN AT 6/10 WITH "GAS PAIN." NORCO AND TORADOL PROVIDED PER ORDER AND PT REQUEST. UP TO BR, PERICARE PER PT. BACK TO BED, DENIES ADDITIONAL NEEDS. BED IN LOW POSITION WITH UPPER SIDE RAILS RAISED X2. CALL LIGHT AND PHONE WITHIN REACH. WILL CONTINUE TO MONITOR AND ASSIST PRN. DR. GRULLON NOTIFIED OF C/O "GAS PAIN, " ORDERS REC'D.
[2019-07-25 06:20] LABS: BASOPHILS 0.3 % (0-2); EOSINOPHILS 3.4 % (0-7); HEMOGLOBIN 9.8 g/dL (12-16); IMMATURE GRANULOCYTES 0.5 % (0-5); LYMPHOCYTES 14.4 % (15-50); MCH 26.6 pg (26.0-34.0); MCHC 31.6 g/dL (31.0-37.0); MEAN PLATELET VOLUME 10.1 fL (7.4-10.4); NEUTROPHILS 74.4 % (40-80); PLATELET COUNT 265 10x3/uL (130-400); RBC 3.69 10x6/uL (4.00-5.40); RDW 14.2 % (11.5-14.5)
[2019-07-25 06:22] LABS: WBC 12.7 10x3/uL (4.8-10.8)
[2019-07-25 07:13] LABS: RAPID PLASMA REAGIN Non Reactive (Non Reactive)
[2019-07-25 07:19] VITALS: BP 123/64
--- NOTE | 2019-07-25 07:19 | NUR ---
ASSUMED CARE OF THIS PATIENT SITTING UP IN BED WATCHING TV. ASLEEP IN CRIB, FOB ASLEEP ON COUCH. SHIFT ASSESSMENT COMPLETED. SAYS SHE HAS BEEN HAVING GAS. BREAST/BOTTLEFEEDING. DISCUSSED VS BOTTLE FEEDING THIS EARLY PP. VERBALIZED UNDERSTANDING. NON-SMOKER, O+ RUBELLA IMMUNE, WILL CHECK TDAP STATUS AND FLU VACCINATION STATUS. SIDE RAILS UP X 2, CALL LIGHT IN REACH.
--- NOTE | 2019-07-25 07:37 | NUR ---
MYLICON 80 MG GIVEN PO FOR RELIEF OF GAS. DISCUSSED ADDITIONAL METHODS FOR RELIEF INCLUDING AMBULATION, LLD POSITION. VERBALIZED UNDERSTANDING. REGULAR DIET AT BEDSIDE. TO CALL IF ANYTHING IS NEEDED.
--- NOTE | 2019-07-25 08:55 | NUR ---
UP TO BATHROOM TO VOID. SMALL TO MOD LOCHIA RUBRA, SMALL AMOUNT NOTED ON LOWER EDGE OF ABD DRESSING. PLANS TO SHOWER LATER THIS AM. CLEAN JOSE ALBERTO-PANTS AND PADS ON PER PATIENT. FOB IN ROOM. INFANT IN NURSERY.
--- NOTE | 2019-07-25 09:39 | NUR ---
READY TO TAKE A SHOWER. ABORIGINAL COMMUNITY COUNCIL MEMBER IN ROOM TALKING TO PATIENT.
--- NOTE | 2019-07-25 10:30 | NUR ---
SHOWER COMPLETED. LAILA INTACT. INSTRUCTED ON INCISION CARE. CLEAN JOSE ALBERTO-PAD PLACED OVER INCISION. 2-12/21 INICIONAL BURNING. DENIES NEEDING ANYTHING FOR PAIN AT THIS TIME. TRIED ABDOMINAL BINDER BUT DID NOT KEEP ON LONG. "I DON'T THINK I WANT TO WEAR THIS WHILE IN BED". INFANT IN NURSERY, FOB IN ROOM. COMPLETE LINEN CHANGE DONE. TO CALL IF ANYTHING IS NEEDED.
--- NOTE | 2019-07-25 11:34 | NUR ---
NORCO 10 MG GIVEN PO FOR RELIEF OF INCISIONAL STINGING 02/20. WILL GIVE TORADOL 10 MG PO WHEN SCHEDULED. NO REQUESTS FOB IN ROOM, INFANT IN CRIB. ENCOURAGED TO AMBULATE IN [place]. SAYS HER GAS IS BETTER AND HAS BEEN PASSING.
--- NOTE | 2019-07-25 13:50 | NUR ---
AMBULATED IN [place] WITH FOB. VISITORS IN ROOM WITH . TOLERATED WELL. NO REQUESTS.
--- NOTE | 2019-07-25 14:38 | NUR ---
DR GRULLON VISITED PT. NEW ORDERS RECEIVED. PT UP AD JULIANNA, SAYS HER PAIN IS BETTER. NOW 2/10 STINGING AT INCISION SITE. VISITORS IN ROOM WITH INFANT. DESIRES TO WALK MORE IN [place] [address]. TO LET RN KNOW IF ANYTHING IS NEEDED.
--- NOTE | 2019-07-25 15:20 | NUR ---
AMBULATING IN [place] WITH FOB AND INFANT. INFANT TO NURSERY. PLANS TO TAKE A REST.
[2019-07-25 15:22] VITALS: BP 116/56
--- NOTE | 2019-07-25 15:22 | NUR ---
RETURNED TO ROOM AFTER AMBULATING, IN BED FOR VS ASSESSMENT. MHR 110. REEVALUATED HR AT REST 104. HR FLUCTUATED BETWEEN 104-118. DENIES PROBLEMS. NO SOB OR CHEST PAIN. PREPARING FOR NAP. LIGHTS ON LOW, FOB IN ROOM, INFANT IN NURSERY, SIDERAILS UP X 2, CALL LIGHT IN REACH.
--- NOTE | 2019-07-25 17:22 | NUR ---
LAYING ON LEFT SIDE WITH LIGHTS ON LOW. INFANT IN CRIB AND FOB ON COUCH. REQUESTED PAIN MEDICATION FOR 5/10 INCISIONAL PULLING/SHARP PAIN. NORCO 10MG GIVEN PO FOR RELIEF ALONG WITH SCHEDULED TORADOL. GETTING READY TO TRY TO FEED BOTTLE. HAS TRIED TO BREASTFEED ON BOTH BREAST AND SAYS INFANT FELL ASLEEP. CURRENTLY AWAKE. TO CALL IF ASSISTANCE IS NEEDED FOR FEEDING. VERBALIZED UNDERSTANDING. SIDE RAILS UP X 2, CALL LIGHT IN REACH.
--- NOTE | 2019-07-25 18:11 | NUR ---
SITTING UP IN BED. INFANT AND FOB AT IN ROOM. Cristin BRITTON RN NURSERY VISITING. SAYS HER PAIN IS 2-3/10 NOW. STINGING. NO REQUESTS. TO CALL IF ANYTHING IS NEEDED.
--- NOTE | 2019-07-25 19:05 | NUR ---
BEDSIDE REPORT REC'D FROM ACACIA BARAHONA. PT REC'D SITTING ON EDGE OF BED. DENIES NEEDS AT THIS TIME. SPOUSE AT BEDSIDE.
[2019-07-25 19:20] VITALS: BP 107/61
--- NOTE | 2019-07-25 19:20 | NUR ---
SHIFT ASSESSMENT COMPLETED PER FLOWSHEET. VSS. PAIN 2/10, DENIES NEED FOR INTERVENTION. FUNDUS FIRM, MIDLINE AND U2 WITH SMALL AMT RUBRA LOCHIA, NO CLOTS NOTED. PT REPORTS THAT SHE IS VOIDING AND PASSING FLATUS WITHOUT DIFFICULTY. EDUCATED ON ACTIVITY LIMITATIONS AT D/C, S/S TO REPORT, MEDICATIONS, PP DEPRESSIONG, BREAST CARE AND BF. DENIES QUESTIONS. POC DISCUSSED WITH PT, VERBALIZES UNDERSTANDING AND DENIES QUESTIONS. REFUSES SCD'S. SPOUSE IN ROOM, SUPPORTIVE AND ATTENTIVE. BED IN LOW POSITION WITH UPPERS SRUPX2. CALL LIGHT AND PHONE WITHIN REACH.
--- NOTE | 2019-07-25 20:48 | NUR ---
PREPARING TO BOTTLE FEED . REPORTS INCREASE IN ABD CRAMPING FOLLOWING BF, REQUEST NORCO WHEN SHE CAN HAVE IT AT 2130, CRAMPING 4-5/10. DENIES ADDITIONAL NEEDS. SPOUSE RESTING ON COUCH AT BEDSIDE. BED IN LOWL POSITION WITH UPPER SIDE RAILS RAISED X2. CALL LIGHT AND PHONE WITHIN REACH. WILL CONTINUE TO MONITOR.
--- NOTE | 2019-07-25 21:51 | NUR ---
C/O ABD CRAMPING AND SORENESS WITH INCISIONAL BURNING AND STINGING 03/23. REQUESTS NORCO AND PROVIDED PER REQUEST. ICE WATER PROVIDED. PT REQUESTED NOT TO BE DISTURBED IF SLEEPING AT 0000 FOR TORADOL. DISCUSSED ADMINISTERING CLOSE TO INFANT FEEDING, REPORTS THAT NEXT FEEDING IS FOR 0. SPOUSE RESTING ON COUCH AT BEDSIDE. BED IN LOW POSITION WITH UPPER SIDE RAILS RAISED X2. CALL LIGHT AND PHONE WITHIN REACH.
--- NOTE | 2019-07-25 22:31 | NUR ---
PAIN REASSESSMENT COMPLETED. RESTING QUIETLY IN SEMI-FOWLERS POSITION WITH EYES CLOSED. RESP REGULAR AND UNLABORED, NO S/S OF DISTRESS NOTED. RESTING QUIETLY IN OPEN CRIB AT BEDSIDE. SPOUSE RESTING ON COUCH. BED IN LOW POSITION WITH SRUPX2. CALL LIGHT AND PHONE WITHIN REACH.
--- NOTE | 2019-07-26 00:11 | NUR ---
C/O ABD CRAMPING AND SORENESS 01/21. PREPARING TO BF . DENIES ADDITIONAL NEEDS. BED IN LOW POSITION WITH UPPER SIDE RAILS RAISED X2. CALL LIGHT AND PHONE WITHIN REACH. SPOUSE RESTING ON COUCH AT BEDSIDE. IN OPEN CRIB.
--- NOTE | 2019-07-26 01:02 | NUR ---
PT SWADDLING INFANT. PAIN NOW 10/23, INCISIONAL STINGING, DENIES NEED FOR INTERVENTION. PLACED IN OPEN CRIB PER PT REQUEST. DENIES NEEDS. REPORTS THAT SHE VOIDED PRIOR TO FEEDING AND PASSED "HALF DOLLAR" SIZED CLOT. FUNDUS FIRM, MIDLINE AND U2 WITH SCANT RUBRA LOCHIA AT THIS TIME. PT VERBALIZES THAT SHE WILL REPORT INCREASED IN BLEEDING TO RN. ICE WATER PROVIDED. DENIES ADDITIONAL NEEDS. SPOUSE SLEEPING ON COUCH AT BEDSIDE. BED IN LOW POSITION WITH SRUPX2. CALL LIGHT AND PHONE WITHIN REACH. WILL CONTINUE TO MONITOR.
--- NOTE | 2019-07-26 03:08 | NUR ---
ROUNDS MADE. OPENS EYES TO DOOR OPENING. DENIES NEEDS AT THIS TIME. TO NBN PER REQUEST AND TO BE BROUGHT BACK TO ROOM FOR FEEDING. KYLE JAEGER RN NOTIFIED. BED IN LOW POSITION WITH SRUPX2. CALL LIGHT AND PHONE WITHIN REACH. SPOUSE RESTING ON COUCH AT BEDSIDE.
--- NOTE | 2019-07-26 04:20 | NUR ---
INFANT TO ROOM FOR FEEDING. PT REQUESTS INFANT BE BOTTLE FED BY RN AT THIS TIME TO ALLOW HER TO CONTINUE TO REST. DENIES NEEDS AND PAIN. BED IN LOW POSITION, SRUPX2. CALL LIGHT AND PHONE WITHIN REACH. SPOUSE RESTING ON COUCH AT BEDSIDE, BACK TO N.
--- NOTE | 2019-07-26 06:30 | NUR ---
RESTING QUIETLY WITH EYES CLOSED IN SEMIFOWLERS POSITION. RESP REGULAR AND UNLABORED. NO S/S OF DISTRESS NOTED. SPOUSE RESTING ON COUCH. BED IN LOW POSITION WITH UPPER SIDE RAILS RAISED X2. CALL LIGHT AND PHONE WITHIN REACH.
[2019-07-26 07:11] VITALS: BP 118/58
--- NOTE | 2019-07-26 07:11 | NUR ---
ASSUMED CARE OF PATIENT. SHIFT ASSESSMENT COMPLETED. NORCO 10 MG GIVEN FOR 5/10 BURNING INCISIONAL PAIN ALONG WITH SCHEDULED TORADOL. DESIRES FLU VACCINE. RECEIVED TDAP 2017 PER [facility] IMMUNIZATION RECORD. FOB SLEEPING ON COUCH. IN CRIB, EYES OPEN. JUST RETURNED TO BED PRIOR TO VS. MHR VARIABLE 112-115.
--- NOTE | 2019-07-26 08:00 | NUR ---
AMBULATING IN [place]. TO NURSERY TO PREVOCATIONAL/REHABILITATION COUNSELOR . PAIN IS BETTER. NOW 2-3/ BURNING.
--- NOTE | 2019-07-26 08:34 | NUR ---
AMBULATING IN [place] WITH SPOUSE, PUSHING CRIB. NO REQUESTS. USING ABDOMINAL SUPPORT BINDER APPROPRIATELY.
--- NOTE | 2019-07-26 09:35 | NUR ---
SITTING UP IN BED WITH FOB. IN CRIB. DESIRES FLU VACCINE WHICH WAS GIVEN IM IN RIGHT DELTOID WITHOUT DIFFICULTY. PULSE RECHECKED 105 AT REST. DENIES NEEDING ANYTHING. ANTICIPATE DC HOME TODAY.
--- NOTE | 2019-07-26 10:32 | NUR ---
AMBULATING IN [place] WITH INFANT IN CRIB.
--- NOTE | 2019-07-26 11:41 | NUR ---
DR GRULLON VISITED PT. ORDERS RECEIVED TO CT HOME.
[2019-07-26] MEDS ORDERED: IBUPROFEN800 MG PO (11:46)
[2019-07-26] MEDS ORDERED: HYDROCODON-ACE1 EAC7 PO (11:47)
[2019-07-26] MEDS ORDERED: CELEXA20 MG PO (11:47)
--- NOTE | 2019-07-26 12:25 | NUR ---
SITTING UP IN BED TALKING TO VISITORS. REQUESTED PAIN MEDICATION FOR 5/10 INCISIONAL BURNING. NORCO 10 MG GIVEN PO FOR RELIEF ALONG WITH SCHEDULED TORADOL. NO ADDITIONAL REQUESTS AT THIS TIME. TO CALL IF ANYTHING IS NEEDED. WAITING ON PERFORMANCE TEST ARCHITECT TO MAKE ROUNDS AND DC .
--- NOTE | 2019-07-26 14:30 | NUR ---
ASKED ABOUT PRESCRIPTIONS TO GO HOME WITH. DISCUSSED PRESCRIPTIONS AND THAT SHE WILL NEED TO TAKE TO PHARMACY TO HAVE FILLED. OFFERED TO ALLOW TO TAKE NOW BUT THEY OPTED TO WAIT UNTIL DC HOME. 10/23 INCISIONAL STINGING. INFANT IN ROOM. WAITING ON DC.
--- NOTE | 2019-07-26 15:10 | NUR ---
DC TEACHING COMPLETED TO INCLUDE POST OP CARE, S&S INFECTION, DANGER SIGNS, PP DEPRESSION, MEDICATION ADMINISTRATION, VACCINATIONS, BREAST/BOTTLE FEEDING AND FOLLOW-UP. ASKED ABOUT PUMPING. NO OTHER QUESTIONS AT THIS TIME. , FOB AND NEW VISITORS JUST ARRIVED. TO CALL IF ANYTHING IS NEEDED.
--- NOTE | 2019-07-26 17:10 | NUR ---
DC'D VIA WHEELCHAIR TO CAR. IN CARSEAT. ALL BELONGINGS REMOVED FROM ROOM. HAS DC INSTRUCTIONS AND PRESCRIPTIONS. HAS F/U APPOINTMENT ALREADY SCHEDULED FOR SATURDAY THIS WEEK. FOB DRIVING.
--- NOTE | 2019-08-10 14:22 | OP ---
PATIENT NAME: CECILY MEDINA MEDICAL RECORD: [id number] LOCATION:[id number] ADMISSION DATE:07/24/19 SURGEON: WILLIAN FLORES MD DATE OF OPERATION: 07/24/2019 PREOPERATIVE DIAGNOSES: 1. Term intrauterine at 37 weeks. 2. History of chronic hypertension and elevation of liver enzymes. POSTOPERATIVE DIAGNOSES: 1. Term intrauterine at 37 weeks. 2. History of chronic hypertension and elevation of liver enzymes. PROCEDURE: A repeat low transverse section. SURGEON: Willian Flores MD ANESTHESIA: Regional via spinal. INTRAVENOUS FLUIDS: Per anesthesia record. ESTIMATED BLOOD LOSS: 1000 cc. SPECIMENS: Included placenta and cord for gases. COMPLICATIONS: None apparent. FINDINGS: 1. Viable infant, Apgars 9 at 1 and 9 at 5. 2. Placenta delivered manually intact, 3-vessel cord. 3. Normal adnexa bilaterally. PROCEDURE IN DETAIL: The patient was taken to the operating room where regional anesthesia was achieved without difficulty. The patient was then prepped and draped in normal sterile fashion in the dorsal supine position. SCDs were on and functioning normally. Adams catheter had been placed and was draining freely. The patient was prepped and draped and then a repeat Pfannenstiel skin incision was made, extended down to the underlying subcutaneous fat to level of fascia. The fascia was then excised in the midline and extended bilaterally using the Najera scissors. The superior and inferior aspect of the fascial incision were grasped with Niru clamps times 2, tented upward, and sharply dissected from the underlying rectus muscle using the Bovie cautery and the Najera scissors. Rectus muscles were then bluntly in the midline and the peritoneum entered sharply at the superior aspect of the incision. Peritoneal incision was then carefully dissected downward using the Metzenbaum scissors and the lower uterine segment was exposed. A bladder flap was created by excising the anterior leaf of the broad ligament across the lower uterine segment using the Metzenbaum scissors. This was further developed sharply and the bladder blade was then replaced over the bladder flap. A low transverse incision was made with the scalpel and then extended superiorly and inferiorly using the Pelosi method. The vertex was then delivered atraumatically followed by the body. The infant was bulb suctioned immediately upon delivery. Cord was then clamped times 2, cut, and the infant was handed to the awaiting nursery team. Cord was obtained for gases and the placenta was removed manually intact, a 3-vessel cord was noted. Uterus was exteriorized, cleared of all clots and OPERATIVE REPORT [id number] PERICAS,MOLLIE debris and then vigorously massaged until uterine tone was noted. The uterine incision was repaired with 0 Vicryl in a running locked fashion times 2 with good hemostasis noted. The posterior cul-de-sac was then thoroughly irrigated and the uterus was returned to the pelvis. Anterior cul-de-sac was then thoroughly irrigated. Counts were correct times 2 for sponges, needles, and instruments and the fascia was repaired with 0 loop PDS times 1. The subcutaneous fat was reapproximated using 2-0 plain gut and the skin was repaired with greg. The patient tolerated the procedure well and was transferred to postanesthesia recovery stable without incident. TRANSINT:[id number] Voice Confirmation ID: [id number] DOCUMENT ID: [id number] WILLIAN FLORES MD at 1422 CC: [id number] DICTATION DATE: 08/07/19 1304 RECRUITMENT ASSISTANT: 08/07/19 1434 DIS IN 07/26/19 [facility] [address] [place] [address]
== END 2019-07-26 17:10 | disposition home or self-care (01) | DRG 788 ==
LOC: D.LD 05:36
PROVIDERS: ADMIT Obstetrics & Gynecology; ATTEND Obstetrics & Gynecology
PROC: 10D00Z1 Extraction of Products of Conception, Low, Open Approach (ICD-10-PCS; principal; 2019-07-24 07:30)
DX: O11.4 Pre-existing hypertension with pre-eclampsia, complicating childbirth (principal); O10.92 Unspecified pre-existing hypertension complicating childbirth; Z3A.37 37 weeks gestation of pregnancy; Z37.0 Single live birth; O99.344 Other mental disorders complicating childbirth; F32.9 Major depressive disorder, single episode, unspecified; O34.219 Maternal care for unspecified type scar from previous cesarean delivery; O99.824 Streptococcus B carrier state complicating childbirth